=== PATIENT | male | born 1985 ===

== ENCOUNTER 2016-06-23 09:02 | Emergency (ER) | payer SELFPAY ==
[2016-06-23] MEDS ORDERED: NO HOME MEDICATION XX (09:12)
[2016-06-23 09:51] LABS: BASO % 0.1 % (0-2); HCT-HEMATOCRIT 50.8 % (36.0-53.5); HGB-HEMOGLOBIN 18.2 gm/dl (13.5-17.0); IMMATURE GRANULOCYTES ABSOLUTE 0.05 tho/cmm (0-0.03); IMMATURE GRANULOCYTES PERCENT 0.3 % (0-0.3); LYMPH % 14.8 % (20-45); LYMPH ABSOLUTE COUNT 2.2 tho/cmm (0.8-4.5); MCH (MEAN CORPUSCULAR HGB) 32.1 pg (28.0-32.0); MCHC MEAN CORPUSCULAR HGB CONC 35.8 % (32.0-36.0); MCV (MEAN CELL VOLUME) 89.6 fl (82.0-96.0); MEAN PLATELET VOLUME 10.4 cmc (9.4-12.4); MONO % 9.3 % (0-12); MONOCYTE ABSOLUTE COUNT 1.4 tho/cmm (0.0-1.2); NEUTROPHIL ABSOLUTE COUNT 11.2 tho/cmm (1.6-8.0); NEUTROPHIL-AUTOMATED 11.2 tho/cmm (1.6-8.0); NEUTROPHILS % 75.5 % (40-80); PLATELET COUNT 310 tho/cmm (150-450); RED BLOOD COUNT 5.67 mil/cmm (4.40-5.70); RED CELL DISTRIBUTION WIDTH 12.9 % (12.4-16.4); WHITE BLOOD COUNT 14.9 tho/cmm (4.0-10.0)
[2016-06-23 10:06] LABS: ALB/GLOB RATIO 1.3 (0.8-2.0); ALBUMIN 4.9 g/dl (3.5-5.0); ALKALINE PHOSPHATASE 59 U/L (33-138); ALT/SGPT 29 U/L (12-78); BILIRUBIN,TOTAL 1.1 mg/dl (0.0-1.5); BLOOD UREA NITROGEN 18 mg/dl (6-24); CALCIUM 10.1 mg/dl (8.5-10.5); CARBON DIOXIDE-VENOUS 24 mmol/L (22-32); CHLORIDE 101 mmol/l (96-110); CREATININE 1.24 mg/dl (0.60-1.30); GLUCOSE 103 mg/dL (70-110); LIPASE 135 U/L (73-393); SODIUM 136 mmol/L (135-145); eGFR VALUE FOR BLACK 89 mL/Min
[2016-06-23 10:12] LABS: ANION GAP 15 mmol/L (0-20)
[2016-06-23 10:13] LABS: AST/SGOT 36 U/L (10-40); POTASSIUM 3.6 mmol/L (3.7-5.1)
[2016-06-23 10:25] LABS: URINE BILIRUBIN SMALL (NEG); URINE BLOOD MODERATE (NEG); URINE GLUCOSE (UA) NEGATIVE (NEG); URINE KETONE MODERATE (NEG); URINE LEUKOCYTE ESTERASE POSITIVE (NEG); URINE NITRITE NEGATIVE (NEG); URINE PROTEIN MODERATE (NEG); URINE SPECIFIC GRAVITY 1.015 (1.003-1.030)
[2016-06-23 10:27] LABS: URINE APPEARANCE CLEAR; URINE COLOR DARK YELLOW
[2016-06-23 10:38] LABS: URINE MUCUS 2+
[2016-06-23] MEDS ORDERED: ZOFRAN ODT4 MG PO (10:39)
[2016-06-23] MEDS ORDERED: NORCO 5/3251 TAB PO (10:39)
== END 2016-06-23 11:00 ==
LOC: EDMED 09:02
PROVIDERS: Emergency Medicine
DX: S20.212A Contusion of left front wall of thorax, initial encounter (principal); R11.2 Nausea with vomiting, unspecified; F17.210 Nicotine dependence, cigarettes, uncomplicated; X58.XXXA Exposure to other specified factors, initial encounter
CPT/HCPCS: J7030